=== PATIENT | female | born 1965 | race Caucasian/White ===

== ENCOUNTER 2024-07-28 08:26 | Day surgery (SDC) | payer OTHER, SELFPAY ==
[2024-07-28] VITALS (17 sets, daily range): BP systolic 128–177; BP diastolic 84–133; PULSE 43–82; RESP 10–16; TEMP 36.1–36.6; O2SAT 92–100; BMI 30.5
--- OUTSIDE RECORDS SUMMARY | 2024-07-28 08:30 | XMS_ITS | Clinical Summary ---
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 30 tablet 0 07/05/2012 Active predniSONE (DELTASONE) 50 mg tab tabletIndication s:Cough One po QAM as needed symptoms. 10 tablet 08/21/2019 Active Active Problems Problem Noted Date Diagnosed Date Obesity 08/08/2013 Routine health maintenance 07/05/2012 Immunizations Name Administration Dates Next Due Td (Age >=7 Years) 02/27/2005 Social History Tobacco Use Types Packs/Day Years Used Date Smoking Tobacco: Never Smokeless Tobacco: Never Alcohol Use Standard Drinks/Week Comments Yes 0 (1 standard drink = 0.6 oz pur e alcohol) Social Connections Answer Date Recorded Frequency of Communication with Friends and Fami ly Not on file 06/21/2021 Financial Resource Strain Answer Date R ecorded Difficulty of Paying Living Expenses Not on file 06/21/2021 Difficulty of Paying Living Expenses Not on file 06/21/2021 Comments No Sex and Gender Information Value Date Recorded Sex Assigned at Not on file Legal Sex Female 8:45 AM SODA FOUNTAIN MANAGER Gender Identity Not on file Sexual Orientation Not on file Obstetrics History Last Filed Vital Signs Vital Sign Reading Time Taken Comments Blood Pressure 126/74 08/21/2019 9:14 AM SODA FOUNTAIN MANAGER Pulse 78 08/21/2019 9:14 AM SODA FOUNTAIN MANAGER Temperature 35.9 C (96.7 F) 07/16/2014 10:40 AM SODA FOUNTAIN MANAGER Respiratory Rate - - Oxygen Saturation 95% 08/21/2019 9:14 AM SODA FOUNTAIN MANAGER Inhaled Oxygen Concentration - - Weight 99.5 kg (219 lb 6.4 oz) 08/21/2019 9:14 A M SODA FOUNTAIN MANAGER Height 167.6 cm (5' 6) 07/16/2014 10:36 AM SODA FOUNTAIN MANAGER Body Mass Index 35.41 07/16/2014 10:36 AM SODA FOUNTAIN MANAGER Plan of Treatment Health Maintenance Due Date Last Done Comments Tdap 1976 Depression screening for age 12+ 1977 HIV for age 15-65 1980 BMI (ht and wt on same day) for age 18+ 11/03/1983 Hepatitis C screening for age 18-79 11/03/1983 Colonoscopy through age 75 2010 Mammogram for age 45-75 2010 Tetanus booster 02/27/2015 02/27/2005, 02/2005 [facility] Pap test for age 21-65 07/05/2015 07/05/2012 Pneumococcal series for age 50+ (1 of 1 - PCV) 11/03/2015 Zoster (shingles) series for age 50+ (1 of 2) 11/03/2015 Lipids for age 45-75 07/16/2019 07/16/2014, 08/08/2013, 07/05/2012 COVID-19 vaccine series ( - 2023- season) 2024 Influenza for age 50-64 02/20/2024 Procedures Procedure Name Priority Date/Time Associated Diagnosis Comments LIPID PANEL Routine 07/16/2014 11:10 AM SODA FOUNTAIN MANAGER Routine health maintenance [employer] CONSULTANT THIN PREP PAP SCREEN IMAGED Routine 07/05/2012 1:24 PM SODA FOUNTAIN MANAGER Routine health maintenance from Last 3 Months or Most Recently Relevant to Health Maintenance Results * LIPID PANEL (07/16/2014 11:10 AM SODA FOUNTAIN MANAGER) CHOLESTEROL,TOTAL 195 100 - 199 mg/dL 07/16/2014 7:12 PM SODA FOUNTAIN MANAGER [facility] TRIGLYCERIDES 74 <150 mg/dL 07/16/2014 7:12 PM SODA FOUNTAIN MANAGER [facility] HDL CHOLESTEROL 55 >40 mg/dL 5 7:12 PM SODA FOUNTAIN MANAGER [facility] NON-HDL CHOLESTEROL 140 <145 mg/dl 07/16/2014 7:12 PM SODA FOUNTAIN MANAGER [facility] CHOL/HDL RATIO 3.55 <4.50 07/16/2014 7:12 PM SODA FOUNTAIN MANAGER [facility] LDL CHOLESTEROL 125 <=130 mg/dL 07/16/2014 7:12 PM SODA FOUNTAIN MANAGER [facility] PATIENT STATUS FASTING 07/16/2014 7:12 PM SODA FOUNTAIN MANAGER [facility] Blood specimen (specimen) BLOOD SPECIMEN / Unknown Venipuncture / Unknown 07/16/2014 11:10 AM SODA FOUNTAIN MANAGER 07/16/2014 11:10 AM SODA FOUNTAIN MANAGER Scott Ortiz MD CHEMISTRY Final Result [facility] [address] [place] [address], * [employer] CONSULTANT THIN PREP PAP SCREEN IMAGED (07/05/2012 1:24 PM SODA FOUNTAIN MANAGER) CYTOLOGY CYTOPATHOLOGY REPORT [facility] Status: Final Status [id number] CLINICAL INFORMATION Last Date of LMP :07/01/2012 Last Pap Date :06/21/2008 Last Pap Result :NIL ABN [place]/Bx Past 5 YRS :None Hormone Usage :BCP/OCP/Patch/Rin g Menstrual Status :Regular Periods [place]/Bx done today :No Additional Information :None given HPV Request :HPV if ASCUS SPECIMEN SOURCE :Cervical/vaginal ThinPrep Vial, screening SPECIMEN ADEQUACY :Satisfactory for evaluation Endocervical component present. INTERPRETATION/RES ULT Negative for intraepithelial lesion or malignancy (NIL) Cytology 1st Screener :paulie Signed by :paulie This specimen was screened by the FDA approved ThinPrep Imaging System and manually reviewed. NOTE: The Pap test is a screening technique, not a diagnostic procedure. It is used primarily to screen for squamous cancers and precursor lesions. Published studies have shown that it is subject to both false negative and false positive results. The pap test should not be used as the sole means to diagnose or exclude pre-malignant and malignant lesions. 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
[2024-07-28] MEDS: SODIUM CHLORIDE 0.9 % (FLUSH) 10 ML SYRINGE IVF (08:45)
[2024-07-28] MEDS: 0.9 % SODIUM CHLORIDE 500 ML 500 ML 100 ML IV (08:45)
[2024-07-28] MEDS: PIPERACILLIN/TAZOBACTAM 3.375 GM INJ IVPB (10:05)
--- NOTE | 2024-07-28 11:57 | P.ANES_ITS ---
Anesthesia Charges Start Date/Time Anesthesia Start Date: 07/28/24 Anesthesia Start Time: 09:55 Stop Date/Time Anesthesia Stop Date: 07/28/24 Anesthesia Stop Time: 12:23 Coding CPT Codes CPT Codes: ANESTH SURG UPPER ABDOMEN - 19386 ([id number]) P2 - PATIENT W/MILD SYST DISEASE, QK - SALESPERSON SURGICAL APPLIANCES 2-4 CNCRNT ANES PROC, QX - MEDICAL APPOINTMENT SCHEDULER SVC W/ MD MED DIRECTION
--- NOTE | 2024-07-28 11:57 | W.ANESCHARGE ---
Anesthesia Charges Start Date/Time Anesthesia Start Date: 07/28/24 Anesthesia Start Time: 09:55 Stop Date/Time Anesthesia Stop Date: 07/28/24 Anesthesia Stop Time: 12:23 Coding CPT Codes CPT Codes: ANESTH SURG UPPER ABDOMEN - 82378 ([id number]) P2 - PATIENT W/MILD SYST DISEASE, QK - ELECTRON TUBE ASSEMBLER 2-4 CNCRNT ANES PROC, QX - EVENT HOST SVC W/ MD MED DIRECTION
[2024-07-28] MEDS: BUPIVACAINE 0.5% 30 ML INJECTION (12:02)
--- NOTE | 2024-07-28 12:22 | PM.GSPRC ---
Operative Note Date of procedure: 07/28/24 Pre-op diagnosis: Acute cholecystitis Post-op diagnosis: Same Type of Procedure: Laparoscopic cholecystectomy Indications: Patient is a 58-year-old female presented to her primary care provider with a 4 day history of right upper quadrant abdominal pain. Workup was obtained with findings consistent with acute cholecystitis. Risks and benefits of operative intervention were discussed at length with the patient. Risks included but was not limited to: Bleeding, infection, risk of damage to surrounding structures, possible need for additional procedures, possible need to convert to an open operation and postoperative complications such as pneumonia, pulmonary emboli or ND. All questions and concerns were addressed with the patient agreeing to proceed. Procedure Description: After discussing the risks and benefits of the procedure, the patient signed informed consent.? The operative site was marked and the patient was brought to the operating room and placed on the operating table in supine position.? Care was taken to pad the patient's pressure points.?? The patient was then intubated by anesthesia.?? The operative site was then prepped and draped in the usual sterile fashion.? A time-out was then performed. Entrance to the abdomen was gained via a 5 mm Visiport in the left upper quadrant. The abdomen was insufflated and briefly surveyed for signs of injury. There was none. An 11 mm umbilical port was placed as well as 2 working ports along the right costal margin. Patient was then placed in reverse Trendelenburg position with the right side up. A small adhesion on the anterior aspect of the liver to the abdominal wall was taken down with cautery. The gallbladder fundus was distended and edematous in appearance. It was able to be grasped and retracted cephalad. Blunt dissection was used to free up surrounding omental adhesions to the gallbladder body. The infundibulum was grasped. A combination of hook cautery and blunt dissection was used to carefully dissect out the cystic duct and artery. A large lymph node of Calot was present on the medial aspect of the gallbladder. Some bleeding of the lymph node occurred during dissection and was controlled with 2 clips. The lymph node was then dissected free and placed on the back table to be sent with pathology. The cystic artery was identified posterior to the lymph node and going into the body of the gallbladder. 2 clips were applied proximal and 1 distal before it was transected. Dissection around the cystic duct was difficult secondary to chronic inflamed tissues. The tissues were carefully dissected free until it could clearly be seen entering the gallbladder without any intervening structures. The gallbladder was dissected off the cystic plate to achieve the critical view. Once this was achieved the cystic duct was clipped with 2 clips proximally and 1 clip distally and transected with the scissors. The gallbladder was then taken off of the liver bed. Two areas of arterial bleeding on the edge of the inflammatory rind was controlled with 5 mm clips. The abdomen was removed from the abdomen using an Endo-Catch bag. The gallbladder bed was surveyed for hemostasis, which was excellent at the end of the procedure. The ports were then removed under direct vision. The umbilical port fascia was closed with 0 Vicryl. The skin was closed with absorbable subcuticular suture. Instrument sponge and needle counts were correct at the end of the case. The patient was then woken and transferred to the PACU in stable condition. Findings: Inflamed gallbladder, consistent with acute cholecystitis. Anesthesia: GETA Surgeon: Abby Peacock MD Estimated blood loss (mL): 150 Specimen: Gallbladder Condition: stable Disposition: PACU
--- NOTE | 2024-07-28 12:25 | P.ANES_ITS ---
Anesthesia Charges Start Date/Time Anesthesia Start Date: 07/28/24 Anesthesia Start Time: 09:55 Stop Date/Time Anesthesia Stop Date: 07/28/24 Anesthesia Stop Time: 12:23 Coding CPT Codes CPT Codes: ANESTH SURG UPPER ABDOMEN - 74525 ([id number]) P2 - PATIENT W/MILD SYST DISEASE, QK - ASSISTANT BRANCH MANAGER 2-4 CNCRNT ANES PROC, QX - TEST ENGINEERING MANAGER SVC W/ MD MED DIRECTION
--- NOTE | 2024-07-28 12:25 | W.ANESCHARGE ---
Anesthesia Charges Start Date/Time Anesthesia Start Date: 07/28/24 Anesthesia Start Time: 09:55 Stop Date/Time Anesthesia Stop Date: 07/28/24 Anesthesia Stop Time: 12:23 Coding CPT Codes CPT Codes: ANESTH SURG UPPER ABDOMEN - 49215 ([id number]) P2 - PATIENT W/MILD SYST DISEASE, QK - DESTATICIZER FEEDER 2-4 CNCRNT ANES PROC, QX - CLIP WRAPPER SVC W/ MD MED DIRECTION
[2024-07-28] MEDS: ONDANSETRON 2 MG/ML inj 4 MG IVP (12:30)
[2024-07-28] MEDS: METOCLOPRAMIDE HCL 5 MG/ML INJ 10 MG IVP (12:46)
== END 2024-07-28 15:29 | disposition home or self-care (01) ==
PROVIDERS: Visit Provider Surgery
PROC: 0FT44ZZ Resection of Gallbladder, Percutaneous Endoscopic Approach (ICD-10-PCS; CPT 47562; principal; 2024-07-28 09:45)
DX: K80.00 Calculus of gallbladder with acute cholecystitis without obstruction (principal); R10.11 Right upper quadrant pain
CPT/HCPCS: 47562; 00790; 88304; J0330; J0665; J1100; J1171; J2405; J2543; J2704; J2710; J2765; J3010; J7030